=== PATIENT | female | born 1995 | race American Indian/Alaskan Native ===

== ENCOUNTER 2016-09-19 10:29 | Emergency (ER) | payer BC ==
--- NOTE | 2016-09-19 10:43 | Emergency Department Report ---
Chief Complaint: Extremity Injury, Lower Stated Complaint: RIGHT KNEE PAIN/PREVIOUS DISLOCATION Time Seen by Provider: 09/19/16 10:38 - HPI History of Present Illness: PT states she has hx of R knee dislocation. PT states this am she felt her R knee cap pop when she was putting on he pants PT states she felt like her knee cap was out of place. PT States she state down to take off pants and her knee popped back. PT States she is still having knee pain. - ROS Review of Systems: + knee pain + swelling to R knee - Exam Physical Exam: obese female, non toxic. steady gait. MSE screening note: Focused history and physical exam performed. Due to findings the following was ordered: xr ED Disposition for MSE Condition: Stable
--- NOTE | 2016-09-19 11:57 | Emergency Department Report ---
ED Lower Extremity HPI - General Chief Complaint: Extremity Injury, Lower Stated Complaint: RIGHT KNEE PAIN/PREVIOUS DISLOCATION Time Seen by Provider: 09/19/16 10:38 Source: patient Mode of arrival: Ambulatory Limitations: No Limitations - History of Present Illness Initial Comments: PT states she has hx of R knee dislocation. PT states this am she felt her R knee cap pop when she was putting on he pants PT states she felt like her knee cap was out of place. PT States she state down to take off pants and her knee popped back. PT States she is still having knee pain. She reported this evening with history of chronic knee pain.Does not orthopedic she does not orthopedic doctor. Denies any fever or chills. Denies any numbness or tingling to extremities. She said her knee popped out of place frequently. Pain is to 10 and aching. She has a history of high blood pressure on medication she says she did not take today. MD Complaint: knee injury -: This morning Injury: Knee: Right (patient here complaining of right knee pain secondary to dislocation) Type of Injury: hyperflexion Place: home Severity: severe Severity scale (0 -10): 8 Worsens With: weight bearing, movement Context: other (bending knee) Other Symptoms: loss of consciousness Associated Symptoms: snap/pop sensation, swelling, able to partially bear weight. denies: numbness, tingling Treatments Prior to Arrival: cold therapy - Related Data Previous Rx's Medication Instructions Recorded Last Taken Type Promethazine [Phenergan] 25 mg PO Q6H PRN #12 tablet 04/07/14 Unknown Rx Ibuprofen [Motrin] 600 mg PO Q8H PRN #12 tablet 09/19/16 Unknown Rx Allergies Allergy/AdvReac Type Severity Reaction Status Date / Time No Known Allergies Allergy Verified 04/07/14 04:17 ED Review of Systems ROS: Stated complaint: RIGHT KNEE PAIN/PREVIOUS DISLOCATION Other details as noted in HPI Constitutional: no symptoms reported Respiratory: no symptoms reported Cardiovascular: denies: chest pain, palpitations, dyspnea on exertion Gastrointestinal: denies: abdominal pain, nausea, vomiting Musculoskeletal: joint swelling, arthralgia. denies: back pain, myalgia Skin: denies: rash Neurological: abnormal gait (due to rt knee pain). denies: headache, weakness, numbness, paresthesias, confusion, vertigo ED Past Medical Hx - Past Medical History Previous Medical History?: Yes Hx Asthma: Yes Additional medical history: Chronic knee pain - Surgical History Past Surgical History?: Yes Additional Surgical History: Tonsillectomy - Family History Family history: hypertension - Social History Smoking Status: Former Smoker Substance Use Type: Alcohol - Medications Home Medications: Home Medications Medication Instructions Recorded Confirmed Last Taken Type Promethazine [Phenergan] 25 mg PO Q6H PRN #12 tablet 04/07/14 Unknown Rx Ibuprofen [Motrin] 600 mg PO Q8H PRN #12 tablet 09/19/16 Unknown Rx ED Physical Exam - General Limitations: No Limitations General appearance: alert, in no apparent distress - Head Head exam: Present: atraumatic, normocephalic, normal inspection - Eye Eye exam: Present: normal appearance, PERRL, EOMI Pupils: Present: normal accommodation - Neck Neck exam: Present: normal inspection, full ROM. Absent: tenderness, meningismus, lymphadenopathy - Respiratory Respiratory exam: Present: normal lung sounds bilaterally. Absent: respiratory distress, chest wall tenderness - Cardiovascular Cardiovascular Exam: Present: regular rate, normal rhythm, normal heart sounds - Extremities Exam Extremities exam: Present: normal inspection, tenderness, normal capillary refill, other (+2 pulses.doses or edema noted to extremities). Absent: full ROM (limited range of motion to right knee pain.), pedal edema, joint swelling, calf tenderness - Expanded Lower Extremity Exam Right Hip exam: Present: normal inspection, full ROM, pelvic stability. Absent: tenderness, swelling, abrasion, laceration, ecchymosis, deformity, crepidus, dislocation, erythema, external rotation, internal rotation, shortening Upper Leg exam: Present: normal inspection, full ROM. Absent: tenderness, swelling, abrasion, laceration, ecchymosis, deformity, crepidus, dislocation, erythema Knee exam: Present: normal inspection, tenderness, full knee extension. Absent : full ROM (Limited range of motion to right knee due to pain. Able to extend her knee but she says she is having pain.), swelling, abrasion, laceration, ecchymosis, deformity, crepidus, dislocation, erythema, effusion, pain w/ pronation/supination, posterior draw sign, pain/laxity with valgus, pain/laxity with varus Lower Leg exam: Present: normal inspection, full ROM. Absent: tenderness, swelling, abrasion, laceration, ecchymosis, deformity, crepidus, dislocation, erythema, palpable cord, Sarah Beth's sign Ankle exam: Present: normal inspection, full ROM. Absent: tenderness, swelling , abrasion, laceration, ecchymosis, deformity, crepidus, dislocation, erythema Foot/Toe exam: Present: normal inspection, full ROM. Absent: tenderness, swelling, abrasion, laceration, ecchymosis, deformity, crepidus, dislocation, erythema, amputation, puncture wound, foreign body, calcaneal tenderness, tenderness at base of 5th metatarsal, nail avulsion, subungual hematoma Neuro vascular tendon exam: Present: no vascular compromise, significant pain with passive ROM of distal joint. Absent: pulse deficit, abnormal cap refill, motor deficit, sensory deficit, tendon deficit, extremity cold to touch, pallor , abnormal 2-point discrimination, decreased fine/light touch, foot drop, peroneal nerve deficit Gait: Positive: observed and limited by pain - Back Exam Back exam: Present: normal inspection, full ROM. Absent: tenderness, CVA tenderness (R), CVA tenderness (L), muscle spasm, paraspinal tenderness, vertebral tenderness, rash noted - Neurological Exam Neurological exam: Present: alert, oriented X3, abnormal gait (Limping to right lower extremity due to knee pain), reflexes normal - Psychiatric Psychiatric exam: Present: normal affect, normal mood - Skin Skin exam: Present: warm, dry, intact, normal color. Absent: rash ED Course Vital Signs 09/19/16 10:39 Temperature 98.2 F Pulse Rate 68 Respiratory 16 Rate Blood Pressure 120/95 O2 Sat by Pulse 100 Oximetry Vital Signs 09/19/16 09/19/16 10:39 12:36 Temperature 98.2 F Pulse Rate 68 Respiratory 16 Rate Blood Pressure 120/95 Blood Pressure 140/82 [Left] O2 Sat by Pulse 100 Oximetry - Reevaluation(s) Reevaluation #1: 09/19/16 12:50 Given Toradol 60 mg IM in emergency and Nimesh wrap to right knee. - Orthopedic Splinting/Casting Injury #1 Side: right Lower Extremity Injury Location: knee Lower Extremity Immobilizer: Nimesh wrap ED Lower Extremity MDM - Radiology Data Radiology results: report reviewed Right knee x-ray reveals no acute osseous findings or soft tissue swelling. No effusions noted. - Medical Decision Making Course: Complains of right knee dislocation morning in which she said went back into place. She is having right knee pain. She is single and on for several years. Patient given Toradol 60 mg IM in the emergency room.See procedure notes for details and splinting. Discussed the patient x-ray results and diagnosis and treatment plan and she is in agreement. Patient to follow-up with Dr. Ledezma orthopedic doctor for chronic knee pain . Discharded home with prescription for naproxen and she is in stable condition. Critical care attestation.: If time is entered above; I have spent that time in minutes in the direct care of this critically ill patient, excluding procedure time. ED Disposition Clinical Impression: Arthralgia Qualifiers: Joint pain location: knee Laterality: right Qualified Code(s): M25.561 - Pain in right knee Chronic knee pain Qualifiers: Laterality: bilateral Qualified Code(s): M25.561 - Pain in right knee; M25.562 - Pain in left knee; G89.29 - Other chronic pain Disposition: DC-01 TO HOME OR SELFCARE Is pt being admited?: No Does the pt Need Aspirin: No Condition: Stable Instructions: Arthralgia (ED), Knee Pain (ED), Knee Exercises (GEN) Additional Instructions: Please follow up with orthopedic doctor as instructed. Take Motrin as prescribed for knee pain Prescriptions: Ibuprofen [Motrin] 600 mg PO Q8H PRN #12 tablet PRN Reason: Pain Referrals: PRIMARY CARE, [Primary Care Provider] - 3-5 Days
--- NOTE | 2016-09-19 12:28 | XRay Report ---
RIGHT KNEE, 3 views: History: Right knee pain. The bony architecture is intact without evidence of fracture or dislocation. No significant soft tissue abnormality is seen. IMPRESSION: Normal right knee.
[2016-09-19] MEDS ORDERED: TORADOL IM ONE (12:33)
[2016-09-19 12:52] VITALS: BP 140/82
== END 2016-09-19 13:22 | disposition home or self-care (01) ==
LOC: ED 10:29
DX: M25.561 Pain in right knee (principal); M25.562 Pain in left knee; G89.29 Other chronic pain; J45.909 Unspecified asthma, uncomplicated; Z87.891 Personal history of nicotine dependence
CPT/HCPCS: 73562; 81025; 96372; 99283; J1885

== ENCOUNTER 2016-10-17 13:49 | Emergency (ER) | payer BC ==
[2016-10-17 17:14] LABS: Bilirubin,Urine NEG (Negative); Blood,Urine NEG (Negative); Ketones,Urine NEG (Negative); Leukocyte Esterase,Urine SM (Negative); Mucus,Urine FEW /HPF; Nitrite,Urine NEG (Negative); Protein,Urine <15 mg/dL mg/dL (Negative); Urobilinogen,Urine < 2.0 mg/dL (<2.0)
--- NOTE | 2016-10-17 18:22 | Emergency Department Report ---
HPI - General Chief Complaint: Back Pain/Injury Time Seen by Provider: 10/17/16 18:22 - HPI HPI: Patient here reported that she is having in back pain that started a week ago to her left back radiating to her left side beside her breasts. Then she said 2 days ago she has pain in her left hip that radiated into her left lower back. She reports urinary frequency with some burning. Denies any blood in her urine. Last menstrual cycle was 09/22/2016. She is sexually active without using protection. Patient have a history of chronic knee pain and asthma. Denies any nausea or vomiting. Denies any fever or chills. Patient that she had some shortness of breath times one initially but she is not having any shortness of breath at present. Denies any chest pain. Denies any coughing. Patient is not using control. She has no history of blood clots in her family or personally. Denies any recent surgery or immobilization for long period. Denies any recent travel by car or airplane. She said the pain is achy and she took Tylenol without any relief. ED Past Medical Hx - Past Medical History Previous Medical History?: Yes Hx Asthma: Yes Additional medical history: Chronic knee pain - Surgical History Past Surgical History?: Yes Additional Surgical History: Tonsillectomy - Family History Family history: no significant, hypertension - Social History Smoking Status: Former Smoker Substance Use Type: Alcohol - Medications Home Medications: Home Medications Medication Instructions Recorded Confirmed Last Taken Type Promethazine [Phenergan] 25 mg PO Q6H PRN #12 tablet 04/07/14 Unknown Rx Ibuprofen [Motrin] 600 mg PO Q8H PRN #12 tablet 09/19/16 Unknown Rx Naproxen [Naprosyn] 500 mg PO BID PRN #10 tablet 10/17/16 Unknown Rx Sulfamethoxazole/Trimethoprim 1 each PO BID #6 tablet 10/17/16 Unknown Rx [Bactrim DS TAB] ED Review of Systems ROS: Stated complaint: BACK PAIN Other details as noted in HPI Comment: All other systems reviewed and negative Constitutional: denies: chills, fever Respiratory: no symptoms reported Cardiovascular: denies: chest pain, palpitations, dyspnea on exertion, orthopnea , edema, syncope Gastrointestinal: denies: abdominal pain, nausea, vomiting, diarrhea, constipation Genitourinary: dysuria, frequency. denies: urgency, hematuria, discharge, abnormal menses, dyspareunia Musculoskeletal: back pain, arthralgia. denies: joint swelling, myalgia Skin: denies: rash Neurological: denies: headache, weakness, numbness, paresthesias, confusion, abnormal gait, vertigo Physical Exam - Physical Exam Vital Signs: Vital Signs 10/17/16 15:51 Temperature 98.6 F Pulse Rate 57 L Respiratory 16 Rate Blood Pressure 111/65 O2 Sat by Pulse 100 Oximetry General: This is a 21-year-old female well-nourished well-developed in no acute distress. Physical Exam: Head: Normocephalic atraumatic Mouth: Moist, no pharyngeal exudate or erythema. Uvula is midline and oral airway is patent. No facial swelling. No peritonsillar abscesses. Nose: Normal mucosa , no drainage. Maxillary and frontal sinuses nontender to palpate Neck: Supple, no C-spine tenderness, no tracheal deviation. Nontender to palpate. no adenopathy Ears: Bilateral TMs pearly otoole area bilateral EAC without any redness swelling or drainage. Abdomen: Soft, nontender to palpate in all quadrants, normal bowel sounds in all quadrant and negative CVA tenderness bilaterally. Back: No vertebral or paraspinal tenderness. No saddle anesthesia. Patient able to ambulate without any difficulties. Negative SLR bilaterally. Neurological: GCS of 15, alert and oriented 3. Speech is clear and fluid. Normal gait. No motor or sensory deficit. Normal reflexes. No facial drooping. No pronator drift and negative Romberg. Eyes: Bilateral pupils equal and reactive to light, bilateral EOM intact. Bilateral sclera and conjunctiva without injection. Normal accommodation. Lungs: Clear to auscultate bilaterally no rhonchi wheezes or rales. Normal work of breathing extremity; No CCE. +2 pulses. No neurovascular compromise Cardiovascular: S1-S2, regular rate rhythm. No murmurs. Skin: clean Dry and intact no rash no lesions Psych: Normal mood and behavior ED Course Vital Signs 10/17/16 15:51 Temperature 98.6 F Pulse Rate 57 L Respiratory 16 Rate Blood Pressure 111/65 O2 Sat by Pulse 100 Oximetry - Reevaluation(s) Reevaluation #1: 10/17/16 18:40 Patient stable throughout ED stay. ED Medical Decision Making - Lab Data Lab Results 10/17/16 10/17/16 Range/Units 16:45 16:45 Urine Color Yellow (Yellow) Urine Turbidity Clear (Clear) Urine pH 5.0 (5.0-7.0) Ur Specific [place] 1.021 (1.003-1.030) Urine Protein <15 mg/dl (Negative) mg/dL Urine Glucose (UA) Neg (Negative) mg/dL Urine Ketones Neg (Negative) mg/dL Urine Blood Neg (Negative) Urine Nitrite Neg (Negative) Urine Bilirubin Neg (Negative) Urine Urobilinogen < 2.0 (<2.0) mg/dL Ur Leukocyte Esterase Sm (Negative) Urine WBC (Auto) 1.0 (0.0-6.0) /HPF Urine RBC (Auto) 2.0 (0.0-6.0) /HPF U Epithel Cells (Auto) 5.0 (0-13.0) /HPF Urine Mucus Few /HPF Urine HCG, Qual Negative (Negative) Urine culture pending - Medical Decision Making ED course: She here complaining of back pain and dysuria with urinary frequency. She has no history of diabetes. She had no abdominal or pelvic pain. Patient urinalysis reveals small leukocyte Estrace all other urine values are within normal limits. Given dysuria and frequency with small amount of leukocyte Estrace I'll treat patient for acute cystitis without hematuria with Bactrim for 3 days. Urine culture sent and pending. This was discussed with patient along with her negative tests. Patient does have a primary care doctor started told her to follow-up in 3-5 days. I told her that a urine culture will be back in 3-5 days and will call her if we need to change antibiotic. She voiced understanding and discharged home with prescription for naproxen and Bactrim DS. Critical care attestation.: If time is entered above; I have spent that time in minutes in the direct care of this critically ill patient, excluding procedure time. ED Disposition Clinical Impression: Acute cystitis without hematuria, Dysuria Back pain Qualifiers: Back pain location: low back pain Chronicity: acute Back pain laterality: left Sciatica presence: without sciatica Qualified Code(s): M54.5 - Low back pain Disposition: - TO HOME OR SELFCARE Is pt being admited?: No Does the pt Need Aspirin: No Condition: Stable Instructions: Acute Low Back Pain (ED), Dysuria (ED), Urinary Tract Infection in Women (ED) Additional Instructions: Please increased year Take medication as prescribed. Prescriptions: Naproxen [Naprosyn] 500 mg PO BID PRN #10 tablet PRN Reason: Pain Sulfamethoxazole/Trimethoprim [Bactrim DS TAB] 1 each PO BID #6 tablet Referrals: PRIMARY CARE, [Primary Care Provider] - 3-5 Days Forms: Work/School Release Form(ED)
[2016-10-17 19:16] VITALS: BP 127/78
== END 2016-10-17 19:16 | disposition home or self-care (01) ==
LOC: ED 13:49
DX: N30.00 Acute cystitis without hematuria (principal); J45.909 Unspecified asthma, uncomplicated; G89.29 Other chronic pain; Z87.891 Personal history of nicotine dependence
CPT/HCPCS: 81001; 81025; 87086; 99283